=== PATIENT | male | born 1935 | race Caucasian/White ===

== ENCOUNTER 2024-07-08 13:03 | Inpatient (IN) | payer BC, OTHER ==
[~2024-07-08] VITALS: Ht 180.3 cm; Wt 74.4 kg
[2024-07-08] MEDS ORDERED: ONDANSETRON 4 MG/2 ML VIAL ONE ×2 (13:24→14:23)
[2024-07-08] MEDS: ONDANSETRON 4 MG/2 ML VIAL IV ONE ×2 (13:25→14:29)
[2024-07-08] MEDS ORDERED: TAMS-3 (13:27)
[2024-07-08] MEDS ORDERED: SIMV-49 PO (13:27)
[2024-07-08] MEDS ORDERED: CLOP75TA33 PO (13:27)
[2024-07-08] MEDS ORDERED: FINA5TAB11 PO (13:27)
[2024-07-08] MEDS ORDERED: CARV6.252 PO (13:27)
[2024-07-08] MEDS ORDERED: LOSA25TA27 PO (13:27)
[2024-07-08] MEDS ORDERED: AMIO200T5 PO (13:27)
[2024-07-08] MEDS: IV NORMAL SALINE 500 ML BAG IV ONE (13:37)
[2024-07-08 13:48] LABS: CALCIUM 9.2 mg/dL (8.5-10.1); CARBON DIOXIDE 21 mmol/L (21-32); CHLORIDE 110 mmol/L (98-107); CREATININE 1.8 mg/dL (0.6-1.3); GLUCOSE 141 mg/dL (74-106); POTASSIUM 4.7 mmol/L (3.5-5.1); SODIUM SERUM 144 mmol/L (136-145); UREA NITROGEN, BLOOD 41 mg/dL (7-18)
[2024-07-08] MEDS ORDERED: GEMF600T90 PO (13:51)
[2024-07-08 13:52] LABS: BASOPHILS # (AUTO) 0.1 K/UL (0.0-0.2); EOSINOPHILS # (AUTO) 0.3 K/uL (0.0-0.7); EOSINOPHILS % (AUTO) 3.9 % (0.0-7.0); HEMATOCRIT 35.2 % (36.7-47.1); HEMOGLOBIN 11.8 g/dL (12.5-16.3); LYMPHOCYTES # (AUTO) 1.3 K/uL (0.8-4.8); LYMPHOCYTES % (AUTO) 15.2 % (20.5-51.5); MEAN CORPUSCULAR HEMOGLOBIN 29.8 uug (23.8-33.4); MEAN CORPUSCULAR HGB CONC 33 g/dL (32.5-36.3); MEAN CORPUSCULAR VOLUME 89.2 fL (73.0-96.2); MONOCYTES # (AUTO) 0.8 K/uL (0.1-1.30); MONOCYTES % (AUTO) 9.1 % (0.0-11.0); NEUTROPHILS # (AUTO) 6.1 K/uL (1.8-8.9); NEUTROPHILS % (AUTO) 70.8 % (38.5-71.5); PLATELET COUNT (AUTO) 150 K/uL (152-348); RED BLOOD CELL COUNT(AUTO) 3.94 MIL/uL (4.06-5.63); RED CELL DISTRIBUTION WIDTH 14.2 % (12.1-16.2); WHITE BLOOD COUNT (AUTO) 8.7 K/uL (3.6-10.2)
[2024-07-08 13:57] LABS: ALANINE AMINOTRANSFERASE 32 U/L (16-63); ALBUMIN 3.7 g/dL (3.4-5.0); ALKALINE PHOSPHATASE 79 U/L (50-136); ASPARTATE AMINOTRANSFERASE 40 U/L (15-37); BILIRUBIN,DIRECT 0.2 mg/dL (0.0-0.2); BILIRUBIN,TOTAL 0.6 mg/dL (0.2-1.0); LIPASE 53 U/L (16-77); TOTAL PROTEIN, SERUM 7.2 g/dL (6.4-8.2)
[2024-07-08 15:37] LABS: *BILIRUBIN,URIN NEGATIVE (NEGATIVE); *BLOOD, URINE NEGATIVE (NEGATIVE); *CLARITY,URINE CLEAR (CLEAR); *COLOR,URINE YELLOW (YELLOW); *KETONES,URINE NEGATIVE (NEGATIVE); *PROTEIN,URINE 2+ (NEGATIVE); *UROBILINOGEN,URINE 0.2 E.U./dl (NORMAL); LEUKOCYTE ESTERASE ,URINE NEGATIVE (NEGATIVE); NITRITE, URINE NEGATIVE (NEGATIVE); PH,URINE 5.5 (5.0-8.0)
[2024-07-08 15:39] LABS: UGLUCOSE 2+ (NEGATIVE)
[2024-07-08 15:56] LABS: RBC,URINE 0-3 /HPF (0-3); SQUAMOUS EPITHELIAL CELL,UR FEW /HPF (NONE SEEN); WBC,URINE 0-3 /HPF (0-3)
[2024-07-08] MEDS ORDERED: ONDANSETRON 4 MG/2 ML VIAL IV PRN (16:00)
[2024-07-08] MEDS ORDERED: IV NS 1000 ML 1,000 ML IV PRN (16:00)
[2024-07-08] MEDS ORDERED: ENOXAPARIN SODIUM 30 MG/0.3 ML DISP.SYRIN ONE (16:13)
[2024-07-08] MEDS: ENOXAPARIN SODIUM 30 MG/0.3 ML DISP.SYRIN SQ SCH (16:15)
[2024-07-08] MEDS ORDERED: SIMV-46 PO (17:46)
[2024-07-08 17:50] VITALS: BP 135/71; TEMP 98.5; O2SAT 92
[2024-07-08] MEDS: CARVEDILOL 6.25 MG TABLET PO SCH (18:39)
[2024-07-08] MEDS: BUMETANIDE 1 MG/4 ML VIAL IV SCH (19:32)
[2024-07-08 21:37] VITALS: O2SAT 93
[2024-07-08] MEDS: IPRATROPIUM BROMIDE 0.5 MG/2.5 ML NEBU NEB PRN (21:37)
[2024-07-08] MEDS: ALBUTEROL SULFATE 2.5 MG/3 ML NEBU NEB PRN (21:37)
[2024-07-08] MEDS: AMOXICILLIN-CLAVUL 500-125MG TABLET PO SCH (21:39)
[2024-07-08 21:48] VITALS: O2SAT 94
[2024-07-09] VITALS (14 sets, daily range): BP systolic 101–118; BP diastolic 46–61; TEMP 97.9–99.6; O2SAT 92–97
[2024-07-09] MEDS: PANTOPRAZOLE SODIUM 40 MG TABLET.DR PO SCH (07:00)
[2024-07-09 07:08] LABS: BASOPHILS % (AUTO) 0.2 % (0.0-2.0); HEMOGLOBIN 12.2 g/dL (12.5-16.3); LYMPHOCYTES # (AUTO) 0.5 K/uL (0.8-4.8); LYMPHOCYTES % (AUTO) 3.8 % (20.5-51.5); MEAN CORPUSCULAR HEMOGLOBIN 30.2 uug (23.8-33.4); MEAN CORPUSCULAR HGB CONC 34 g/dL (32.5-36.3); MEAN CORPUSCULAR VOLUME 89.4 fL (73.0-96.2); MONOCYTES # (AUTO) 0.9 K/uL (0.1-1.30); MONOCYTES % (AUTO) 6.6 % (0.0-11.0); NEUTROPHILS # (AUTO) 12.6 K/uL (1.8-8.9); NEUTROPHILS % (AUTO) 89.4 % (38.5-71.5); PLATELET COUNT (AUTO) 134 K/uL (152-348); RED BLOOD CELL COUNT(AUTO) 4.03 MIL/uL (4.06-5.63); WHITE BLOOD COUNT (AUTO) 14.1 K/uL (3.6-10.2)
[2024-07-09 07:30] LABS: DIFFERENTIAL COMMENT 1
[2024-07-09 07:54] LABS: CALCIUM 9.5 mg/dL (8.5-10.1); CARBON DIOXIDE 20 mmol/L (21-32); CHLORIDE 109 mmol/L (98-107); CREATININE 2.2 mg/dL (0.6-1.3); GLUCOSE 124 mg/dL (74-106); MAGNESIUM 1.8 mg/dL (1.8-2.4); PHOSPHOROUS 4.4 mg/dL (2.5-4.9); POTASSIUM 5.1 mmol/L (3.5-5.1); SODIUM SERUM 146 mmol/L (136-145); UREA NITROGEN, BLOOD 45 mg/dL (7-18)
[2024-07-09] MEDS ORDERED: LOSARTAN POTASSIUM 25 MG TABLET PO SCH (09:00)
[2024-07-09] MEDS: IV NORMAL SALINE 250 ML IV ONE (09:48)
[2024-07-09] MEDS: ENOXAPARIN SODIUM 30 MG/0.3 ML DISP.SYRIN SQ SCH (10:10)
[2024-07-09] MEDS: AMIODARONE HCL 200 MG TABLET PO SCH (10:16)
[2024-07-09] MEDS: CLOPIDOGREL 75 MG TABLET PO SCH (10:16)
[2024-07-09] MEDS: FINASTERIDE 5 MG TABLET PO SCH (10:49)
[2024-07-09] MEDS: AMLODIPINE 2.5 MG TABLET PO SCH (11:30)
[2024-07-09] MEDS: AMIODARONE HCL IV 150 MG in IV DEXTROSE 5% 100 ML IV ONE (14:47)
[2024-07-09] MEDS: AMIODARONE HCL IV 450 MG in IV DEXTROSE 5% 250 ML IV PRN (14:56)
[2024-07-09] MEDS: ACETAMINOPHEN 325 MG TABLET PO PRN (17:53)
[2024-07-09] MEDS: IV LACTATED RINGERS SOLUTION 1,000 ML IV SCH (18:13)
[2024-07-09] MEDS ORDERED: PIPERACILLIN SODIUM/TAZOBACTAM 3.375 G in IV DEXTROSE 5% 50 ML IV SCH (18:15)
[2024-07-09] MEDS: ATORVASTATIN 40 MG TABLET PO SCH (21:45)
[2024-07-09] MEDS: PIPERACILLIN SODIUM/TAZOBACTAM 3.375 G in IV DEXTROSE 5% 100 ML IV SCH (21:45)
[2024-07-09] MEDS ORDERED: HEPARIN/D5W DRIP 500 ML IV PRN (23:15)
[2024-07-09 23:22] LABS: *BILIRUBIN,URIN NEGATIVE (NEGATIVE); *BLOOD, URINE NEGATIVE (NEGATIVE); *CLARITY,URINE CLEAR (CLEAR); *COLOR,URINE YELLOW (YELLOW); *KETONES,URINE NEGATIVE (NEGATIVE); *PROTEIN,URINE NEGATIVE (NEGATIVE); *UROBILINOGEN,URINE 0.2 E.U./dl (NORMAL); LEUKOCYTE ESTERASE ,URINE NEGATIVE (NEGATIVE); NITRITE, URINE NEGATIVE (NEGATIVE); UGLUCOSE NEGATIVE (NEGATIVE)
[2024-07-09 23:31] LABS: *CREATININE,URINE 68.4 mg/dL (30-125); *URINE TOTAL PROTEIN RANDOM 14.1 mg/dL (<150/24HR)
[2024-07-09] MEDS ORDERED: AMIODARONE HCL 150 MG/3 ML VIAL IV ONE (23:34)
[2024-07-10] VITALS (31 sets, daily range): BP systolic 91–130; BP diastolic 48–91; TEMP 97.8–99.2; O2SAT 90–100
[2024-07-10] MEDS: HEPARIN SODIUM,PORCINE 5,000 UNITS/ML VIAL IV ONE (01:37)
[2024-07-10] MEDS: HEPARIN/D5W DRIP 500 ML IV PRN (01:52)
[2024-07-10 07:25] LABS: BASOPHILS % (AUTO) 0.4 % (0.0-2.0); EOSINOPHILS % (AUTO) 0.4 % (0.0-7.0); HEMATOCRIT 35.3 % (36.7-47.1); HEMOGLOBIN 11.9 g/dL (12.5-16.3); LYMPHOCYTES % (AUTO) 9.1 % (20.5-51.5); MEAN CORPUSCULAR HEMOGLOBIN 30.2 uug (23.8-33.4); MEAN CORPUSCULAR HGB CONC 34 g/dL (32.5-36.3); MONOCYTES % (AUTO) 9.3 % (0.0-11.0); NEUTROPHILS # (AUTO) 8.6 K/uL (1.8-8.9); NEUTROPHILS % (AUTO) 80.8 % (38.5-71.5); PLATELET COUNT (AUTO) 140 K/uL (152-348); RED BLOOD CELL COUNT(AUTO) 3.92 MIL/uL (4.06-5.63); RED CELL DISTRIBUTION WIDTH 14.1 % (12.1-16.2); WHITE BLOOD COUNT (AUTO) 10.6 K/uL (3.6-10.2)
[2024-07-10 07:48] LABS: ALANINE AMINOTRANSFERASE 25 U/L (16-63); ALBUMIN 3.3 g/dL (3.4-5.0); ALKALINE PHOSPHATASE 55 U/L (50-136); ASPARTATE AMINOTRANSFERASE 48 U/L (15-37); BILIRUBIN,TOTAL 0.9 mg/dL (0.2-1.0); CALCIUM 9.5 mg/dL (8.5-10.1); CARBON DIOXIDE 25 mmol/L (21-32); CHLORIDE 107 mmol/L (98-107); CREATINE KINASE, TOTAL 224 U/L (39-308); CREATININE 2.6 mg/dL (0.6-1.3); GLUCOSE 138 mg/dL (74-106); PHOSPHOROUS 3.5 mg/dL (2.5-4.9); SODIUM SERUM 143 mmol/L (136-145); TOTAL PROTEIN, SERUM 7.2 g/dL (6.4-8.2); UREA NITROGEN, BLOOD 53 mg/dL (7-18)
[2024-07-10 07:50] LABS: DIFFERENTIAL COMMENT 1
[2024-07-10] MEDS: ACETYLCYSTEINE 20% 800 MG/4 ML VIAL NEB SCH (09:39)
[2024-07-11] VITALS (31 sets, daily range): BP systolic 88–139; BP diastolic 53–108; TEMP 97.6–98.8; O2SAT 91–100
[2024-07-11 05:09] LABS: PTH, INTACT 75 pg/mL (15-65)
[2024-07-11 05:33] LABS: BASOPHILS % (AUTO) 0.4 % (0.0-2.0); EOSINOPHILS # (AUTO) 0.1 K/uL (0.0-0.7); EOSINOPHILS % (AUTO) 1.1 % (0.0-7.0); HEMATOCRIT 31.6 % (36.7-47.1); HEMOGLOBIN 10.9 g/dL (12.5-16.3); LYMPHOCYTES # (AUTO) 0.8 K/uL (0.8-4.8); LYMPHOCYTES % (AUTO) 9.7 % (20.5-51.5); MEAN CORPUSCULAR HEMOGLOBIN 30.3 uug (23.8-33.4); MEAN CORPUSCULAR HGB CONC 34 g/dL (32.5-36.3); MONOCYTES # (AUTO) 0.8 K/uL (0.1-1.30); MONOCYTES % (AUTO) 10.1 % (0.0-11.0); NEUTROPHILS # (AUTO) 6.3 K/uL (1.8-8.9); NEUTROPHILS % (AUTO) 78.7 % (38.5-71.5); PLATELET COUNT (AUTO) 115 K/uL (152-348); RED BLOOD CELL COUNT(AUTO) 3.59 MIL/uL (4.06-5.63); RED CELL DISTRIBUTION WIDTH 13.8 % (12.1-16.2)
[2024-07-11 05:34] LABS: CALCIUM 9.1 mg/dL (8.5-10.1); CARBON DIOXIDE 25 mmol/L (21-32); CHLORIDE 107 mmol/L (98-107); CREATININE 2.4 mg/dL (0.6-1.3); GLUCOSE 124 mg/dL (74-106); MAGNESIUM 1.8 mg/dL (1.8-2.4); PHOSPHOROUS 3.6 mg/dL (2.5-4.9); SODIUM SERUM 143 mmol/L (136-145); UREA NITROGEN, BLOOD 50 mg/dL (7-18)
[2024-07-11] MEDS: GUAIFENESIN LA 600 MG TABLET.SA PO PRN (14:13)
[2024-07-12] VITALS (28 sets, daily range): BP systolic 108–162; BP diastolic 50–69; TEMP 97.5–98.7; O2SAT 94–100
[2024-07-12] MEDS ORDERED: ENOXAPARIN SODIUM 40 MG/0.4 ML DISP.SYRIN SQ SCH (11:15)
[2024-07-12] MEDS: ENOXAPARIN SODIUM 60 MG/0.6 ML DISP.SYRIN SQ SCH (11:58)
[2024-07-12] MEDS: TETRACA/BENZOCA/BUTAMBEN SPRAY 1 SPR CAN TP ONE (12:47)
[2024-07-12] MEDS: DEXAMETHASONE SOD PHOSPHATE 10 MG INJ IV ONE (13:38)
[2024-07-12] MEDS: DEXAMETHASONE SOD PHOSPHATE 4 MG INJ IV SCH (20:23)
[2024-07-13] VITALS (30 sets, daily range): BP systolic 98–129; BP diastolic 56–81; TEMP 97.5–99.3; O2SAT 91–99
[2024-07-13 09:12] LABS: BASOPHILS % (AUTO) 0.1 % (0.0-2.0); HEMATOCRIT 33.5 % (36.7-47.1); HEMOGLOBIN 11.4 g/dL (12.5-16.3); LYMPHOCYTES # (AUTO) 0.4 K/uL (0.8-4.8); LYMPHOCYTES % (AUTO) 4.4 % (20.5-51.5); MEAN CORPUSCULAR HGB CONC 34 g/dL (32.5-36.3); MEAN CORPUSCULAR VOLUME 88.4 fL (73.0-96.2); MONOCYTES # (AUTO) 0.5 K/uL (0.1-1.30); MONOCYTES % (AUTO) 4.8 % (0.0-11.0); NEUTROPHILS % (AUTO) 90.7 % (38.5-71.5); PLATELET COUNT (AUTO) 156 K/uL (152-348); RED BLOOD CELL COUNT(AUTO) 3.79 MIL/uL (4.06-5.63); RED CELL DISTRIBUTION WIDTH 13.8 % (12.1-16.2); WHITE BLOOD COUNT (AUTO) 9.9 K/uL (3.6-10.2)
[2024-07-13 09:20] LABS: DIFFERENTIAL COMMENT 1
[2024-07-13 09:39] LABS: CALCIUM 9.4 mg/dL (8.5-10.1); CARBON DIOXIDE 25 mmol/L (21-32); CHLORIDE 105 mmol/L (98-107); CREATININE 2.1 mg/dL (0.6-1.3); GLUCOSE 194 mg/dL (74-106); MAGNESIUM 2.2 mg/dL (1.8-2.4); PHOSPHOROUS 3.6 mg/dL (2.5-4.9); SODIUM SERUM 141 mmol/L (136-145); UREA NITROGEN, BLOOD 46 mg/dL (7-18)
[2024-07-13] MEDS: AMIODARONE HCL 200 MG TABLET PO SCH (20:18)
[2024-07-14] VITALS (15 sets, daily range): BP systolic 117–135; BP diastolic 63–84; TEMP 97.5–98.7; O2SAT 91–99
[2024-07-14 06:04] LABS: BASOPHILS % (AUTO) 0.1 % (0.0-2.0); HEMATOCRIT 31.1 % (36.7-47.1); HEMOGLOBIN 10.7 g/dL (12.5-16.3); LYMPHOCYTES # (AUTO) 0.5 K/uL (0.8-4.8); LYMPHOCYTES % (AUTO) 4.9 % (20.5-51.5); MEAN CORPUSCULAR HEMOGLOBIN 30.1 uug (23.8-33.4); MEAN CORPUSCULAR HGB CONC 34 g/dL (32.5-36.3); MEAN CORPUSCULAR VOLUME 87.8 fL (73.0-96.2); MONOCYTES # (AUTO) 0.6 K/uL (0.1-1.30); MONOCYTES % (AUTO) 5.6 % (0.0-11.0); NEUTROPHILS # (AUTO) 8.9 K/uL (1.8-8.9); NEUTROPHILS % (AUTO) 89.4 % (38.5-71.5); PLATELET COUNT (AUTO) 152 K/uL (152-348); RED BLOOD CELL COUNT(AUTO) 3.54 MIL/uL (4.06-5.63); RED CELL DISTRIBUTION WIDTH 13.7 % (12.1-16.2); WHITE BLOOD COUNT (AUTO) 9.9 K/uL (3.6-10.2)
[2024-07-14 06:05] LABS: DIFFERENTIAL COMMENT 1
[2024-07-14 06:06] LABS: A/G RATIO 1.3 (0.7-1.7); ALBUMIN 3.5 g/dL (2.9-4.4); ALPHA-1-GLOBULIN 0.3 g/dL (0.0-0.4); ALPHA-2-GLOBULIN 0.6 g/dL (0.4-1.0); BETA GLOBULIN 0.9 g/dL (0.7-1.3); GAMMA GLOBULIN 0.9 g/dL (0.4-1.8); GLOBULIN, TOTAL 2.7 g/dL (2.2-3.9); M-SPIKE Not Observed g/dL (Not Observed); PROTEIN, TOTAL 6.2 g/dL (6.0-8.5)
[2024-07-14 06:11] LABS: CALCIUM 8.8 mg/dL (8.5-10.1); CARBON DIOXIDE 26 mmol/L (21-32); CHLORIDE 105 mmol/L (98-107); GLUCOSE 146 mg/dL (74-106); POTASSIUM 3.9 mmol/L (3.5-5.1); SODIUM SERUM 139 mmol/L (136-145); UREA NITROGEN, BLOOD 53 mg/dL (7-18)
[2024-07-14 06:15] LABS: MAGNESIUM 2.1 mg/dL (1.8-2.4); PHOSPHOROUS 3.6 mg/dL (2.5-4.9)
[2024-07-14 07:18] LABS: ALBUMIN 2.6 g/dL (3.4-5.0); BILIRUBIN,DIRECT 0.2 mg/dL (0.0-0.2); BILIRUBIN,TOTAL 0.6 mg/dL (0.2-1.0); TOTAL PROTEIN, SERUM 6.2 g/dL (6.4-8.2)
[2024-07-14] MEDS: CLOPIDOGREL 75 MG TABLET PO SCH (09:46)
[2024-07-14] MEDS: GEMFIBROZIL 600 MG TABLET PO SCH (12:45)
[2024-07-14] MEDS ORDERED: SIMVASTATIN 20 MG TABLET PO SCH (12:45)
[2024-07-14] MEDS: ATORVASTATIN 10 MG TABLET PO SCH (21:14)
[2024-07-15] VITALS (8 sets, daily range): BP systolic 127–133; BP diastolic 58–89; TEMP 97.4–98; O2SAT 92–98
[2024-07-15 06:56] LABS: CALCIUM 9.1 mg/dL (8.5-10.1); CARBON DIOXIDE 19 mmol/L (21-32); CHLORIDE 106 mmol/L (98-107); GLUCOSE 146 mg/dL (74-106); SODIUM SERUM 136 mmol/L (136-145); UREA NITROGEN, BLOOD 53 mg/dL (7-18)
[2024-07-15 06:58] LABS: POTASSIUM 3.7 mmol/L (3.5-5.1)
[2024-07-15 06:59] LABS: MAGNESIUM 2.5 mg/dL (1.8-2.4); PHOSPHOROUS 3.8 mg/dL (2.5-4.9)
[2024-07-15] MEDS ORDERED: TAMSULOSIN HCL 0.4 MG CAP.SR.24H PO SCH (09:00)
[2024-07-15] MEDS: REMEDY ESSENTIAL ZINC PASTE 113 GM TP PRN (09:03)
[2024-07-15] MEDS: FUROSEMIDE 40 MG/4 ML VIAL IV ONE (09:03)
[2024-07-15] MEDS: TAMSULOSIN HCL 0.4 MG CAP.SR.24H PO SCH (11:07)
[2024-07-15 14:20] LABS: BASOPHILS % (AUTO) 0.3 % (0.0-2.0); HEMATOCRIT 33.9 % (36.7-47.1); HEMOGLOBIN 11.2 g/dL (12.5-16.3); LYMPHOCYTES # (AUTO) 0.4 K/uL (0.8-4.8); LYMPHOCYTES % (AUTO) 4.7 % (20.5-51.5); MEAN CORPUSCULAR HEMOGLOBIN 29.2 uug (23.8-33.4); MEAN CORPUSCULAR HGB CONC 33 g/dL (32.5-36.3); MEAN CORPUSCULAR VOLUME 88.2 fL (73.0-96.2); MONOCYTES # (AUTO) 0.5 K/uL (0.1-1.30); MONOCYTES % (AUTO) 5.7 % (0.0-11.0); NEUTROPHILS # (AUTO) 7.7 K/uL (1.8-8.9); NEUTROPHILS % (AUTO) 89.3 % (38.5-71.5); PLATELET COUNT (AUTO) 166 K/uL (152-348); RED BLOOD CELL COUNT(AUTO) 3.85 MIL/uL (4.06-5.63); RED CELL DISTRIBUTION WIDTH 13.6 % (12.1-16.2); WHITE BLOOD COUNT (AUTO) 8.7 K/uL (3.6-10.2)
[2024-07-15 14:31] LABS: DIFFERENTIAL COMMENT 1
[2024-07-15] MEDS ORDERED: PANT40TA49 PO (16:01)
[2024-07-15] MEDS ORDERED: METH4TAB21 PO (16:01)
[2024-07-15] MEDS ORDERED: ACET325T53 PO (16:01)
[2024-07-15] MEDS ORDERED: AMOX-427 PO (16:01)
[2024-07-15] MEDS ORDERED: AMIO100T4 PO (16:01)
== END 2024-07-15 17:15 | disposition home or self-care (01) | DRG 308 ==
LOC: ER 13:03 → TELE3 17:26 → CCU 07-09 14:01 → TELE3 07-14 20:15
PROVIDERS: ADMIT Nurse Practitioner Acute Care; ATTEND Nurse Practitioner Acute Care
PROC: 05HB33Z Insertion of Infusion Device into Right Basilic Vein, Percutaneous Approach (ICD-10-PCS; principal; 2024-07-09)
DX: I49.01 Ventricular fibrillation (principal); A41.9 Sepsis, unspecified organism; J69.0 Pneumonitis due to inhalation of food and vomit; N17.0 Acute kidney failure with tubular necrosis; I13.0 Hypertensive heart and chronic kidney disease with heart failure and stage 1 through stage 4 chronic kidney disease, or unspecified chronic kidney disease; J47.0 Bronchiectasis with acute lower respiratory infection; D68.59 Other primary thrombophilia; E44.0 Moderate protein-calorie malnutrition; I67.89 Other cerebrovascular disease; I50.42 Chronic combined systolic (congestive) and diastolic (congestive) heart failure; I46.2 Cardiac arrest due to underlying cardiac condition; I47.20 Ventricular tachycardia, unspecified; J20.9 Acute bronchitis, unspecified; I25.5 Ischemic cardiomyopathy; Z95.810 Presence of automatic (implantable) cardiac defibrillator; Z95.1 Presence of aortocoronary bypass graft; Z86.73 Personal history of transient ischemic attack (TIA), and cerebral infarction without residual deficits; I25.10 Atherosclerotic heart disease of native coronary artery without angina pectoris; N18.30 Chronic kidney disease, stage 3 unspecified; N40.0 Benign prostatic hyperplasia without lower urinary tract symptoms; E11.22 Type 2 diabetes mellitus with diabetic chronic kidney disease; I48.91 Unspecified atrial fibrillation; E78.5 Hyperlipidemia, unspecified; I25.2 Old myocardial infarction; I35.8 Other nonrheumatic aortic valve disorders; E11.65 Type 2 diabetes mellitus with hyperglycemia; D69.6 Thrombocytopenia, unspecified; R13.10 Dysphagia, unspecified; D64.9 Anemia, unspecified; K80.20 Calculus of gallbladder without cholecystitis without obstruction; K57.30 Diverticulosis of large intestine without perforation or abscess without bleeding; N28.1 Cyst of kidney, acquired; Z87.442 Personal history of urinary calculi; M89.8X9 Other specified disorders of bone, unspecified site; Z68.22 Body mass index [BMI] 22.0-22.9, adult; E88.09 Other disorders of plasma-protein metabolism, not elsewhere classified; M15.9 Polyosteoarthritis, unspecified; T50.2X5A Adverse effect of carbonic-anhydrase inhibitors, benzothiadiazides and other diuretics, initial encounter; Z79.02 Long term (current) use of antithrombotics/antiplatelets; Z79.899 Other long term (current) drug therapy; I70.209 Unspecified atherosclerosis of native arteries of extremities, unspecified extremity; Z74.09 Other reduced mobility
CPT/HCPCS: 36415; 70450; 70490; 71045; 71250; 83690; 83735; 83970; 84100; 84155; 84165; 84300; 84484; 85025; 85730; 93307; 94640; A4606; G0378; J0282; J1100; J1644; J1650; J1940; J2405; J2543; J3490; J3590; J7040; J7050; J7120